=== PATIENT | male | born 1960 | race Caucasian/White ===

== ENCOUNTER 2017-10-31 14:46 | Day surgery (SDC) | payer BC ==
--- NOTE | 2017-11-02 11:27 | RADRPT ---
EXAM DATE/TIME: 10/31/2017 15:19 [facility] COMPARISON : No previous studies available for comparison. INDICATIONS : Metastatic Renal Cell Carcinoma OBJECTIVE: Temperature: 98.2 Heart Rate: 80 Blood Pressure: 157/82 Respiratory: 18 Oximetry: 97 PNEUMONIA VACCINE: HISTORY OF PRESENT ILLNESS: 57-year-old male with history of metastatic renal cell carcinoma to the right femur as well as the sp ine. Patient has a pathologic fracture at the L2 level with large metastatic focus at L5. There also smaller metastatic lesions at T9 and possibly C7. He has debilitating pain in the mid to lower lumbar region which she rates as up to 8-9/10 with activity. He denies any new radiculopathy, bowel or urin sera incontinence, or significant motor/sensory deficits beyond issues he is experiencing secondary to right femoral surgery. PAST MEDICAL HISTORY : 1. Diabetes mellitus 2. 2. Renal cell carcinoma. 3. Carcinoma, bone. PAST SURGICAL HISTORY : 1. Right Nephrectomy SOCIAL HISTORY : Social alcohol use. Patient has a ALLERGIES: 1. NKDA MEDICATIONS: 1. Amaryl (Glimepiride) 1 mg q.d. 2. Zocor (Simvastatin) 40 mg q.d. 3. Fenofibrate 54 mg b.i.d. Kombiglyze XR 11/999 mg q.d. Finasteride 5 mg q.d. Areds- vitamins q.d. Cabomedyx- chemo Rx PHYSICAL EXAMINATION: General: No acute distress Back: Mild tenderness on palpation of the L2 and L5 spinous processes. Neuro: Grossly intact. IMAGING STUDIES: MRI examinations dated 10/26/2017 were reviewed. Again these demonstrate pathologic mild compression f racture at L2 without retropulsed fragments and large enhancing mass in L5. No significant epidural i nvolvement or posterior bony destruction. There is an enhancing mass in the posterior left T9 vertebr al body extending to the pedicle. More subtle enhancement at C7. ASSESSMENT: 57-year-old male with metastatic renal cell carcinoma to the spine and debilitating pathologic fractu re at L2 and large tumor volume at L5. Patient would certainly benefit from ablation and cement augme ntation at L2 and L5 levels prior to radiation treatment. Disease at T9 is small and centered about t he pedicle and not ideally suited to palliative ablation, Extensive discussion regarding risks and benefits of ablation and cement augmentation. All questions were answered. PLAN: Osteocool ablation with kyphoplasty at L2 and L5. TIME SPENT: 30 minutes Jakub Aguilera MD on November 02, 2017 at 10:12 Board Certified Radiologist. This report was verified electronically.
== END 2017-10-31 16:35 | disposition home or self-care (01) ==
LOC: HROP 14:46 → HRIP 14:47 → HROP 16:35
PROVIDERS: ATTEND Specialist
DX: C64.9 Malignant neoplasm of unspecified kidney, except renal pelvis (principal); C79.51 Secondary malignant neoplasm of bone; E11.9 Type 2 diabetes mellitus without complications; Z79.84 Long term (current) use of oral hypoglycemic drugs

== ENCOUNTER 2017-11-06 06:47 | Day surgery (SDC) | payer BC ==
[~2017-11-06] VITALS: Ht 177.8 cm; Wt 75.0 kg
[2017-11-06 07:10] VITALS: BP 159/86; PULSE 71; RESP 20; TEMP 97.8; O2SAT 97
[2017-11-06] MEDS ORDERED: FENO54TA PO (07:21)
[2017-11-06] MEDS ORDERED: FINA5TAB2 (07:21)
[2017-11-06] MEDS ORDERED: SIMV40TA PO (07:21)
[2017-11-06] MEDS ORDERED: AREDS 2 (07:21)
[2017-11-06] MEDS ORDERED: KOMB5TAB2 PO (07:21)
[2017-11-06] MEDS ORDERED: GLIM1TAB PO (07:21)
[2017-11-06] MEDS ORDERED: LACTATED RINGER'S 1000 ML IV PRN (07:30)
[2017-11-06] MEDS ORDERED: SODIUM CHLORID 0.9% 500 ML IV PRN (07:30)
--- NOTE | 2017-11-06 07:32 | EKG ---
Date Performed: 11/06/2017 Time Performed: 07:20:10 PTAGE: 57 years EKG: Sinus rhythm NO PREVIOUS TRACING DOCTOR: Osbaldo Benson Interpretating Date/Time 11/06/2017 07:30:39
[2017-11-06 07:41] LABS: AUTOMATED NEUTROPHIL # 3.7 TH/MM3 (1.8-7.7); BASOPHIL # 0.1 TH/MM3 (0-0.2); BASOPHIL % 0.8 % (0.0-2.0); EOSINOPHIL # 0.2 TH/MM3 (0-0.4); EOSINOPHIL % 2.6 % (0.0-4.0); HEMATOCRIT 36.9 % (39.0-51.0); HEMOGLOBIN 12.7 GM/DL (13.0-17.0); LYMPH % 30.4 % (9.0-44.0); LYMPHOCYTE # 1.9 TH/MM3 (1.0-4.8); MEAN CELL VOLUME 80.3 FL (80.0-100.0); MEAN CORPUSCULAR HEMOGLOBIN 27.6 PG (27.0-34.0); MEAN CORPUSCULAR HGB CONC 34.4 % (32.0-36.0); MEAN PLATELET VOLUME 6.7 FL (7.0-11.0); MONO % 6.1 % (0.0-8.0); MONOCYTE # 0.4 TH/MM3 (0-0.9); NEUT % 60.1 % (16.0-70.0); PLATELET COUNT 375 TH/MM3 (150-450); RED BLOOD COUNT 4.59 MIL/MM3 (4.50-5.90); RED CELL DISTRIBUTION WIDTH 15.8 % (11.6-17.2); WHITE BLOOD COUNT 6.1 TH/MM3 (4.0-11.0)
[2017-11-06] MEDS ORDERED: SODIUM CHLOR 0.9% 1000 ML INJ 1,000 ML IV SCH (07:45)
[2017-11-06 07:53] LABS: PROTHROMBIN TIME - PATIENT 10.4 SEC (9.8-11.6)
[2017-11-06 07:58] LABS: BICARBONATE 29.4 MEQ/L (21.0-32.0); CREATININE 1.35 MG/DL (0.60-1.30)
[2017-11-06] MEDS ORDERED: HYDR-3583 PO (08:51)
[2017-11-06] MEDS ORDERED: MS C15TA7 PO (08:51)
[2017-11-06] MEDS ORDERED: ceFAZolin 2 GM/NS PREMIX 100 ML IV SCH (10:15)
[2017-11-06] MEDS ORDERED: fentaNYL CITRATE 250 MCG/5 ML AMP ONE (10:17)
[2017-11-06] MEDS ORDERED: DO NOT ADM ANY ANTICOAGULANT DRUGS PRN (12:27)
[2017-11-06] MEDS ORDERED: *morphine SULFATE 4 MG/ML PERIprocedure ONLY ONE (13:02)
--- NOTE | 2017-11-06 13:14 | PD.RAD ---
Post Procedure Progress Note Pre Procedure Diagnosis: (1) Metastasis Post Procedure Diagnosis: (1) Metastasis Procedure Date: Nov 06, 2017 Supervising Radiologist: Jakub Aguilera Proceduralist/Assist: Jordyn Noble, RT(R)(CV), Osmany Mcgill, RT(R) Anesthesia: General Plan of Activity Patient to Unit: PACU Patient Condition: Good See PACS Report for procedural detail/treatment Jakub Aguilera MD Nov 06, 2017 13:14
[2017-11-06] MEDS ORDERED: HYDROmorphone HCL PF 2 MG/ML VIAL IV PUSH PRN (13:15)
[2017-11-06 13:20] VITALS: BP 174/91; PULSE 65; RESP 16; TEMP 97.8; O2SAT 94
[2017-11-06 13:50] VITALS: BP 163/87; PULSE 69; RESP 18; O2SAT 98
--- NOTE | 2017-11-06 14:19 | RADRPT ---
EXAM DATE/TIME: 11/06/2017 10:26 [facility] COMPARISON: RFA VERTEBRAL BODY, November 06, 2017, 0:00. INDICATIONS : 57-year-old male with history of metastatic renal cell carcinoma to the spine and pathologic fracture at L2 level. Patient was seen in the interventional radiology clinic and now presents for ablation a nd cement augmentation. MEDICAL HISTORY : DM Renal cancer and mets SURGICAL HISTORY : RT nephrectomy ENCOUNTER: Initial ACUITY: 7-11 months PAIN SCORE: 0/10 LOCATION: N/A FLUORO TIME: 20.9 minutes IMAGE SERIES: 14 LEVEL: L2 L5 MEDICATION(S): 1.) 2 g cefazolin (Ancef) IV DEVICE: 1. 6 cc Kyphon Xpede bone cement L5 2. 8 cc Kyphon Xpede bone cement L2 Anesthesia and pain control was provided by the Anesthesia department. PROCEDURE : 1. L2 radiofrequency ablation 2. L2 kyphoplasty 3. L5 radiofrequency ablation 4. L5 kyphoplasty The risks, benefits and alternatives to the procedure were explained and verbal and written consent w as obtained. The site was prepped in sterile fashion. Full sterile technique was used, including ca p, mask, sterile gloves and gown and a large sterile sheet. Hand hygiene and 2% chlorhexidine and/or betadine/alcohol prep was utilized per protocol for cutaneous antisepsis. Sterile gel and sterile p robe cover were utilized for ultrasound guidance. The skin and subcutaneous tissues were infiltrated with local anesthetic solution. Patient was placed prone. The L2 and L5 vertebral bodies were localized with fluoroscopy. 1% lidocain e solution was injected to the periosteum from anesthesia. L5: 8 gauge Kyphon trocar needles were advanced using a bilateral transpedicular approach at L5 level. 20 mm Osteocool ablation probes were then introduced and the level was ablated for 15 minutes. Next, 20 mm Kyphon balloons were inflated and cement was injected to fill the cavities. Approximately 6 mL of Xpede cement was injected. There was no evidence for epidural extravasation. L2: 8 gauge Kyphon trocar needles were advanced using a bilateral transpedicular approach at L2 level. 20 mm Osteocool ablation probes were then introduced and the level was ablated for 15 minutes. Next, 20 mm Kyphon balloons were inflated and cement was injected to fill the cavities. Approximately 8 mL of Xpede cement was injected. There was no evidence for epidural extravasation. Trocar needles were then removed and hemostasis obtained with manual compression. The patient tolerat ed the procedure well and there were no complications. CONCLUSION: 1. Uncomplicated L2 and L5 radiofrequency ablation with kyphoplasty, as above. Jakub Aguilera MD on November 06, 2017 at 14:12 Board Certified Radiologist. This report was verified electronically.
[2017-11-06 14:50] VITALS: BP 165/85; PULSE 68; RESP 18; O2SAT 97
[2017-11-09] MEDS ORDERED: MULT10CA PO (16:56)
== END 2017-11-06 15:29 | disposition home or self-care (01) ==
LOC: HROP 06:47 → HRIP 06:50 → HROP 15:29
PROVIDERS: ATTEND Specialist
DX: C79.51 Secondary malignant neoplasm of bone (principal); C78.00 Secondary malignant neoplasm of unspecified lung; C64.9 Malignant neoplasm of unspecified kidney, except renal pelvis; E78.5 Hyperlipidemia, unspecified; E10.9 Type 1 diabetes mellitus without complications; Z79.84 Long term (current) use of oral hypoglycemic drugs
CPT/HCPCS: 01936; 20982; 22514; 22515; 80048; 85025; 85610; 85730; 93005; C1886; J1170; J2270; J3010

== ENCOUNTER 2017-11-15 13:13 | Day surgery (SDC) | payer BC ==
[~2017-11-15 13:13] MED LIST: FENO54TA PO; FINA5TAB2; GLIM1TAB PO; HYDR-3583 PO; KOMB5TAB2 PO; MS C15TA7 PO; MULT10CA PO; SIMV40TA PO
--- NOTE | 2017-11-15 14:01 | RADRPT ---
EXAM DATE/TIME: 11/15/2017 00:00 [facility] COMPARISON : INDICATIONS : FOLLOW UP KYPHOPLASTY OBJECTIVE: Temperature: 98.0 Heart Rate: 75 Blood Pressure: 151/80 Respiratory: 18 Oximetry: 95 PNEUMONIA VACCINE: HISTORY OF PRESENT ILLNESS: 57-year-old male with history of metastatic renal cell carcinoma to spine postop day #9 status post L 2 and L5 ablation and kyphoplasty. He reports significant improvement in his symptoms with mild persi stent dull pain particularly on initiation of activity. Denies any fevers/chills, bowel/urinary incon tinence or new radiculopathy. ASSESSMENT: Postop day #9 status post uneventful L2 and L5 ablation and kyphoplasty with significant improvement in symptoms. Mild residual dull pain on initiation of activity is likely muscular. Patient was encour aged to followup with our office should he experience new pain/symptoms as he is at risk for developi ng additional lesions/pathologic fracture. TIME SPENT: 20 minutes. Jakub Aguilera MD on November 15, 2017 at 13:55 Board Certified Radiologist. This report was verified electronically.
== END 2017-11-15 14:00 | disposition home or self-care (01) ==
LOC: HROP 13:13 → HRIP 13:14 → HROP 14:00
PROVIDERS: ATTEND Radiology Diagnostic Radiology
DX: C79.51 Secondary malignant neoplasm of bone (principal); C64.9 Malignant neoplasm of unspecified kidney, except renal pelvis